=== PATIENT | female | born 1945 | race Caucasian/White ===

== ENCOUNTER 2017-11-08 12:47 | Emergency (ER) | payer MEDICARE, BC ==
[2017-11-08] MEDS ORDERED: ACETAMINOPHEN 325 MG TABLET PO ONE (13:00)
[2017-11-08] MEDS ORDERED: DIPH/PERTUSS(ACELL)/TETANUS VAC/PF 0.5 ML SYR (>=10YO) IM ONE (13:01)
--- NOTE | 2017-11-08 13:03 | ER Document Report ---
ED General - General Stated Complaint: FALL SHOULDER, HEAD PAIN Time Seen by Provider: 11/08/17 12:56 - HPI Notes: Right shoulder pain 8/10 sharp in nature without radiation nothing makes it better or worse. Started after a fall at home. Patient also has a small laceration right eyebrow approximately 1 inch. Patient denies headache. Patient was walking through the parking lot was trying to step over a speed bump that she misjudged the speed bump tripping or falling forward landing on her right side and striking her head on the ground. Patient denies any neck pain, numbness or tingling patient was able to rise the ground. She is now having difficulty moving her right shoulder. No obvious deformities. - Related Data Allergies/Adverse Reactions: No Known Allergies Allergy (Verified 11/08/17 13:14) Past Medical History - Social History Smoking Status: Unknown if Ever Smoked Family History: None - Past Medical History Cardiac Medical History: Reports: Hx Hypertension - new Dx, med x 1 month, HCTZ Denies: Hx Atrial Fibrillation, Hx Congestive Heart Failure, Hx Coronary Artery Disease, Hx Heart Attack, Hx Hypercholesterolemia, Hx Peripheral Vascular Disease, Hx Heart Murmur Renal/ Medical History: Reports: Hx Kidney Stones - ESWL approx 25 years ago RIGHT. Denies: Hx End Stage Renal Disease, Hx Peritoneal Dialysis GI Medical History: Reports: Hx Gastroesophageal Reflux Disease - no meds at present. Denies: Hx Crohn's Disease, Hx Hiatal Hernia, Hx Irritable Bowel, Hx Liver Failure, Hx Pancreatitis, Hx Ulcer Musculoskeltal Medical History: Reports Hx Arthritis, Denies Hx Fibromyalgia, Denies Hx Muscular Dystrophy Traumatic Medical History: Denies: Hx Fractures Past Surgical History: Reports: Hx Bowel Surgery - 2003 colon resection r/t multiple polyps, Hx Cholecystectomy, Hx Hysterectomy - RAFAEL BSO, Hx Tubal Ligation. Denies: Hx Appendectomy, Hx Section, Hx Colostomy, Hx Coronary Artery Bypass Graft, Hx Gastric Bypass Surgery, Hx Herniorrhaphy, Hx Mastectomy, Hx Pacemaker, Hx Tonsillectomy - Immunizations Hx Pneumococcal Vaccination: 09/14/12 Review of Systems - Review of Systems Notes: REVIEW OF SYSTEMS: CONSTITUTIONAL: -fevers, -chills EENT: -eye pain, -difficulty swallowing, -nasal congestion CARDIOVASCULAR: -chest pain, -syncope. RESPIRATORY: -cough, -SOB GASTROINTESTINAL: -abdominal pain, -nausea, -vomiting, -diarrhea GENITOURINARY: -dysuria, -hematuria MUSCULOSKELETAL: -back pain, -neck pain, positive right shoulder plain SKIN: -rash or skin lesions. Positive small laceration right eyebrow HEMATOLOGIC: -easy bruising or bleeding. LYMPHATIC: -swollen, enlarged glands. NEUROLOGICAL: -altered mental status or loss of consciousness, -headache, - neurologic symptoms PSYCHIATRIC: -anxiety, -depression. ALL OTHER SYSTEMS REVIEWED AND NEGATIVE. Physical Exam - Vital signs Vitals: Temp Pulse Resp BP Pulse Ox 98.9 F 103 H 16 101/62 97 11/08/17 12:54 11/08/17 12:54 11/08/17 12:54 11/08/17 12:54 11/08/17 12:54 - Notes Notes: PHYSICAL EXAMINATION: GENERAL: Well-appearing, well-nourished and in no acute distress. HEAD: Small laceration over right eyebrow, proximal 3 cm minimal gaping EYES: Pupils equal round and reactive to light, extraocular movements intact, sclera anicteric, conjunctiva are normal. ENT: nares patent, oropharynx clear without exudates. Moist mucous membranes. NECK: Normal range of motion, supple without lymphadenopathy LUNGS: Breath sounds clear to auscultation bilaterally and equal. No wheezes rales or rhonchi. HEART: Regular rate and rhythm without murmurs ABDOMEN: Soft, nontender, normoactive bowel sounds. No guarding, no rebound. No masses appreciated. EXTREMITIES: Unable to extend right arm secondary to pain, no obvious deformity felt NEUROLOGICAL: Cranial nerves grossly intact. Normal speech, normal gait. Normal sensory and motor exams. PSYCH: Normal mood, normal affect. SKIN: Warm, Dry, normal turgor, no rashes or lesions noted. Course - Re-evaluation Re-evalutation: 11/08/17 13:03 72-year-old female presents after mechanical fall outside by her doctor's office. Patient will have imaging study, urinalysis, EKG, CAT scan head. Cervical spine cleared by Nexus criteria 11/08/17 14:15 Patient's CAT scan of her head shows no intracranial process, imaging of her shoulder shows a proximal right humerus fracture. Patient not requiring any analgesia at this time will be placed in a sling for comfort. Patient's laceration close successfully by myself with Dermabond no complications. Patient will follow up with orthopedics 1 or 2 weeks. Given prescription for more pain medication. 11/08/17 14:18 Urine shows no signs of infection, EKG is no ischemic changes. - Vital Signs Vital signs: Temp Pulse Resp BP Pulse Ox 98.9 F 103 H 16 101/62 97 11/08/17 12:54 11/08/17 12:54 11/08/17 12:54 11/08/17 12:54 11/08/17 12:54 - EKG Interpretation by Me Additional EKG results interpreted by me: 11/08/17 14:18 Normal sinus rhythm 80 bpm, normal TN, normal QRS, no ST elevations or depressions, no pathologic T-wave inversions Procedures - Laceration/Wound Repair Right Face Wound length (cm): 3 Wound's Depth, Shape: Superficial, Linear Wound explored: Clean, No foreign body removed Wound Repaired With: Dermabond Post-procedure NV exam normal: Yes Complications: No Discharge - Discharge Clinical Impression: Laceration Humerus shaft fracture Qualifiers: Encounter type: initial encounter Fracture type: closed Fracture morphology: other fracture Laterality: right Qualified Code(s): S42.391A - Other fracture of shaft of right humerus, initial encounter for closed fracture Condition: Stable Disposition: HOME, SELF-CARE Instructions: Laceration Care ([facility]) Referrals: SHITAL CARLSON DO [Primary Care Provider] - Follow up as needed MALIHA CARVALHO MD [ACTIVE STAFF] - Follow up as needed
--- NOTE | 2017-11-08 14:03 | RADIOLOGY REPORT (SQ) ---
EXAM DESCRIPTION: SHOULDER RIGHT 2 OR MORE VIEWS COMPLETED DATE/TIME: 11/08/2017 1:52 pm REASON FOR STUDY: pain fall, injury, pain COMPARISON: None. NUMBER OF VIEWS: Three views. TECHNIQUE: Internal rotation, external rotation, and Y view images acquired of the right shoulder. LIMITATIONS: Portable technique FINDINGS: MINERALIZATION: Osteopenic BONES: Acute comminuted fracture right humeral head involving the greater tuberosity and surgical nec k, nondisplaced nonangulated. Fracture lines do not appear to extend to the articular surface of the humeral head. Right lobe scapula, clavicle and right upper ribs are intact. JOINTS: No dislocation. VISUALIZED LUNGS AND RIBS: No pneumothorax. No rib fracture. SOFT TISSUES: No radiopaque foreign body. OTHER: No other significant finding. IMPRESSION: Acute comminuted fracture right humeral head involving the greater tuberosity and surgic al neck. Nondisplaced, nonangulated. TECHNICAL DOCUMENTATION: JOB ID: [id number] [employer]- All Rights Reserved Reading location - IP/workstation name: [email or web address]
--- NOTE | 2017-11-08 14:06 | RADIOLOGY REPORT (SQ) ---
EXAM DESCRIPTION: CT HEAD WITHOUT COMPLETED DATE/TIME: 11/08/2017 1:55 pm REASON FOR STUDY: head trauma fall, injury, pain. Laceration to right eyebrow. COMPARISON: None. TECHNIQUE: Axial images acquired through the brain without intravenous contrast. Images reviewed wi th bone, brain and subdural windows. Additional sagittal and coronal reconstructions were generated. Images stored on PACS. All CT scanners at this facility use dose modulation, iterative reconstruction, and/or weight based d osing when appropriate to reduce radiation dose to as low as reasonably achievable (ALARA). [facility]: Dose Right [facility]: CareDose [facility]: Dose Right [facility]: Teradose 4D [facility]: [employer] RADIATION DOSE: CT Rad equipment meets quality standard of care and radiation dose reduction techniq ues were employed. CTDIvol: 53.2 mGy. DLP: 1044 mGy-cm. mGy. LIMITATIONS: None. FINDINGS: VENTRICLES: Normal size and contour. CEREBRUM: No masses. No hemorrhage. No midline shift. No evidence for acute infarction. Normal gra y/white matter differentiation. No areas of low density in the white matter. CEREBELLUM: No masses. No hemorrhage. No alteration of density. No evidence for acute infarction. EXTRAAXIAL SPACES: No fluid collections. No masses. ORBITS AND GLOBE: No intra- or extraconal masses. Normal contour of globe without masses. CALVARIUM: No fracture. PARANASAL SINUSES: No fluid or mucosal thickening. SOFT TISSUES: No mass or hematoma. OTHER: No other significant finding. IMPRESSION: NORMAL BRAIN CT WITHOUT CONTRAST. EVIDENCE OF ACUTE STROKE: NO. COMMENT: Quality ID # [id number]: Final reports with documentation of one or more dose reduction techniques (e.g., Automated exposure control, adjustment of the mA and/or kV according to patient size, use of iterative reconstruction technique) TECHNICAL DOCUMENTATION: JOB ID: [id number] [employer]- All Rights Reserved Reading location - IP/workstation name: [email or web address]
[2017-11-08 14:32] LABS: APPEARANCE,URINE TURBID; BILIRUBIN,URINE NEGATIVE (NEGATIVE); COLOR,URINE YELLOW; GLUCOSE, URINE NEGATIVE (NEGATIVE); KETONES,URINE NEGATIVE (NEGATIVE); LEUKOCYTE ESTERASE,URINE LARGE (NEGATIVE); NITRITE,URINE POSITIVE (NEGATIVE); PROTEIN,URINE 100 mg/dL (NEGATIVE); UROBILINOGEN,URINE NEGATIVE mg/dL (<2.0)
[2017-11-08 15:06] VITALS: BP 133/77
--- NOTE | 2017-11-08 21:44 | EKG REPORT ---
SEVERITY:- ABNORMAL ECG - SINUS RHYTHM NONSPECIFIC INTRAVENTRICULAR CONDUCTION DELAY PROBABLE LEFT VENTRICULAR HYPERTROPHY : Confirmed by: Sherrell Dubose MD 08-Nov-2017 21:44:07
== END 2017-11-08 14:55 | disposition home or self-care (01) ==
LOC: ER 12:47
PROC: 0HQ1XZZ Repair Face Skin, External Approach (ICD-10-PCS; principal; 2017-11-08)
DX: S42.391A Other fracture of shaft of right humerus, initial encounter for closed fracture (principal); S01.111A Laceration without foreign body of right eyelid and periocular area, initial encounter; W19.XXXA Unspecified fall, initial encounter; Y92.009 Unspecified place in unspecified non-institutional (private) residence as the place of occurrence of the external cause; W01.0XXA Fall on same level from slipping, tripping and stumbling without subsequent striking against object, initial encounter; Y92.481 Parking lot as the place of occurrence of the external cause; Z90.49 Acquired absence of other specified parts of digestive tract; Z90.710 Acquired absence of both cervix and uterus; Z23 Encounter for immunization
CPT/HCPCS: 93005; 99284; 81001; 73030; 70450; 90715; 93010; 12013; A9270

== ENCOUNTER 2017-11-18 12:01 | Inpatient (IN) | payer MEDICARE, BC ==
[2017-11-18] MEDS ORDERED: NORMAL SALINE 1000 ML 1,000 ML IV ONE ×2 (12:25→14:09)
[2017-11-18] MEDS ORDERED: ASPIRIN 81 MG TABLET, CHEWABLE PO ONE (12:25)
[2017-11-18 12:56] LABS: ABSOLUTE LYMPHOCYTES (AUTO) 1.5 10^3/uL (0.5-4.7); ABSOLUTE MONOCYTES (AUTO) 0.9 10^3/uL (0.1-1.4); ABSOLUTE NEUT (AUTO) 7.2 10^3/uL (1.7-8.2); BASOPHILS % (AUTO) 0.2 % (0-2); EOSINOPHILS % (AUTO) 0.1 % (0-6); HEMATOCRIT 28.2 % (36.0-47.0); HEMOGLOBIN 9.2 g/dL (12.0-15.5); LYMPHOCYTES % (AUTO) 15.1 % (13-45); MEAN CORPUSCULAR HEMOGLOBIN 27.6 pg (27.0-33.4); MEAN CORPUSCULAR HGB CONC 32.7 g/dL (32.0-36.0); MEAN CORPUSCULAR VOLUME 85 fl (80-97); MONOCYTES % (AUTO) 9.5 % (3-13); PLATELET COUNT 423 10^3/uL (150-450); RED BLOOD COUNT 3.33 10^6/uL (3.72-5.28); RED CELL DISTRIBUTION WIDTH 18.1 % (11.5-14.0); SEGMENTED NEUTROPHILS % (AUTO) 75.1 % (42-78); TOTAL CELLS COUNTED % (AUTO) 100 %; WHITE BLOOD COUNT 9.6 10^3/uL (4.0-10.5)
[2017-11-18 13:23] LABS: CREATINE KINASE MB 1.76 ng/mL (<4.55)
--- NOTE | 2017-11-18 13:33 | ER Document Report ---
ED General - General Chief Complaint: Dizziness Stated Complaint: FALL BODY PAIN Time Seen by Provider: 11/18/17 12:13 Mode of Arrival: Medic Information source: Patient Notes: 72-year-old female brought in by EMS from [facility] urgent care where she was seen just prior to arrival. Patient went to urgent care because she has been feeling dizzy, having vomiting and diarrhea for the past 2 weeks, complaining of a right-sided headache and bilateral knee pain right greater than left since she fell and broke her right arm and hit her head on November 08. Patient had negative CT scan of the head on the but her pain has continued and radiates into the right side of her neck. Denies taking blood thinners. Patient states that when she lived fell she landed on her bilateral knees. She is able to walk but states it hurts. Patient describes her dizziness as feeling like she is going to pass out, states that she feels like her heartburn has increased since the dizziness started. She has also been noticing blood in her urine for the past several months, states that her urine just always looks dark red. TRAVEL OUTSIDE OF THE [place] IN LAST 30 DAYS: No - Related Data Allergies/Adverse Reactions: No Known Allergies Allergy (Verified 11/08/17 13:14) Past Medical History - General Information source: Patient, Emergency Med Personnel, Outside Facility Records - Social History Smoking Status: Never Smoker Chew tobacco use (# tins/day): No Frequency of alcohol use: None Drug Abuse: None Lives with: Family Family History: None - Past Medical History Cardiac Medical History: Reports: Hx Hypertension - new Dx, med x 1 month, HCTZ Denies: Hx Atrial Fibrillation, Hx Congestive Heart Failure, Hx Coronary Artery Disease, Hx Heart Attack, Hx Hypercholesterolemia, Hx Peripheral Vascular Disease, Hx Heart Murmur EENT Medical History: Reports: Eyes - Cataracts with surgeries. Renal/ Medical History: Reports: Hx Kidney Stones - ESWL approx 25 years ago RIGHT. Denies: Hx End Stage Renal Disease, Hx Peritoneal Dialysis GI Medical History: Reports: Hx Gastroesophageal Reflux Disease - no meds at present. Denies: Hx Crohn's Disease, Hx Hiatal Hernia, Hx Irritable Bowel, Hx Liver Failure, Hx Pancreatitis, Hx Ulcer Musculoskeletal Medical History: Reports Hx Arthritis, Denies Hx Fibromyalgia, Denies Hx Muscular Dystrophy Traumatic Medical History: Denies: Hx Fractures Past Surgical History: Reports: Hx Bowel Surgery - 2004 colon resection r/t multiple polyps, Hx Cholecystectomy, Hx Hysterectomy - RAFAEL BSO, Hx Orthopedic Surgery - bilateral knee, Hx Tubal Ligation. Denies: Hx Appendectomy, Hx Section, Hx Colostomy, Hx Coronary Artery Bypass Graft, Hx Gastric Bypass Surgery, Hx Herniorrhaphy, Hx Mastectomy, Hx Pacemaker, Hx Tonsillectomy - Immunizations Hx Pneumococcal Vaccination: 09/14/12 Review of Systems - Review of Systems Constitutional: See HPI, Weakness EENT: Other - No change in her vision, states she has cataracts, had multiple surgeries performed, cannot see without her glasses. Cardiovascular: See HPI, Dizziness Respiratory: No symptoms reported Gastrointestinal: See HPI, Diarrhea, Nausea, Vomiting. denies: Abdominal pain Genitourinary: No symptoms reported Musculoskeletal: See HPI Neurological/Psychological: See HPI - Dizziness, near syncope., Headaches -: Yes All other systems reviewed and negative Physical Exam - Vital signs Interpretation: Tachycardic - Notes Notes: GENERAL: Alert, interacts well. No acute distress. HEAD: Normocephalic, atraumatic EYES: Left pupil is irregular and displaced superiorly, right pupil is round, able to track my fingers. States she cannot see without her glasses on. ENT: Oral mucosa moist, tongue midline. NECK: Full range of motion, supple, trachea midline. No midline bony tenderness palpation, tenderness across the right trapezius. LUNGS: Clear to auscultation bilaterally, no wheezes, rales or rhonchi, no respiratory distress. HEART: Regular rate and rhythm, no murmurs, gallops, rubs. ABDOMEN: Soft, nontender, nondistended, bowel sounds present in all 4 quadrants. EXTREMITIES: Right knee is ecchymotic, swollen, tender to palpation diffusely across the knee, negative anterior and posterior drawer test, no ligamentous laxity on either knee, patella is not ballotable on either knee, left knee is ecchymotic medially, not swollen, there is full range of motion. No cyanosis. Dorsalis pedis pulses 2+ bilaterally. Right arm immobilized in sling and not examined aside from verifying that she still has full range of motion of her fingers on her right hand. NEUROLOGICAL: Alert and oriented x3, normal speech. PSYCH: Normal mood, normal affect. SKIN: Warm, Dry, normal turgor Course - Re-evaluation Re-evalutation: 11/18/17 14:35 CBC shows anemia with hemoglobin 9.2, CMP shows acute renal failure, consistent with dehydration, CO2 is low at 9, anion gap elevated at 20, BUN quite elevated 99, creatinine quite elevated at 5.31, glucose normal at 111, cardiac enzymes negative, LFTs normal. EKG is nonischemic, patient is hydrated with a liter of normal saline, Izaguirre catheter has been ordered in case there is any urinary obstruction causing this renal failure, a second liter of normal saline has been ordered as well. Chest x-ray does not show any congestive heart failure or pulmonary edema, no signs of infiltrate or rib fractures, bilateral knee x- rays were ordered and they show prosthesis in good position bilaterally, given the dizziness in the pain after a fall CT scan of the head is again negative, seeing as she is complaining of neck pain along with her dizziness and did have a recent fall a CAT scan of the neck was ordered and also shows no acute fracture or dislocation. 11/18/17 14:41 Suspect renal failure is coming from dehydration due to the vomiting and diarrhea, patient was hypotensive on arrival, tachycardic, has a history of vomiting and diarrhea and has a low CO2. Discussed with Dr. Betina celis, agrees to admit the patient, hydrate them and see what their responses, Izaguirre catheter will be placed. Patient is aware that her renal failure may not respond to fluids and if so she may end up needing dialysis. - Laboratory Result Diagrams: 11/18/17 12:35 11/18/17 12:35 Laboratory results interpreted by me: 11/18/17 11/18/17 12:35 12:35 RBC 3.33 L Hgb 9.2 L Hct 28.2 L RDW 18.1 H Sodium 134.5 L Carbon Dioxide 9 L* Anion Gap 20 H BUN 99 H Creatinine 5.31 H Est GFR ( Amer) 10 L Est GFR (Non-Af Amer) 8 L Glucose 112 H AST 6 L Albumin 3.3 L - EKG Interpretation by Me Additional EKG results interpreted by me: 11/18/17 14:42 EKG shows sinus tachycardia, left axis deviation, interventricular conduction delay, T-wave inversions in 3 and aVF, no ST segment elevations or depressions poor R-wave progression per my interpretation. Discharge - Discharge Clinical Impression: Acute renal failure Condition: Fair Disposition: ADMITTED INPATIENT Admitting Provider: Hospitalist - [facility] Unit Admitted: IMCU Referrals: ELVIA BASURTO MD [Primary Care Provider] - Follow up as needed
[2017-11-18 13:34] LABS: TROPONIN I < 0.012 ng/mL
--- NOTE | 2017-11-18 13:37 | RADIOLOGY REPORT (SQ) ---
EXAM DESCRIPTION: CHEST SINGLE VIEW COMPLETED DATE/TIME: 11/18/2017 1:24 pm REASON FOR STUDY: dizziness COMPARISON: 09/04/2012 EXAM PARAMETERS: NUMBER OF VIEWS: One view. TECHNIQUE: Single frontal radiographic view of the chest acquired. RADIATION DOSE: NA LIMITATIONS: None. FINDINGS: LUNGS AND PLEURA: No opacities, masses or pneumothorax. No pleural effusion. MEDIASTINUM AND HILAR STRUCTURES: No masses. Contour normal. HEART AND VASCULAR STRUCTURES: Heart normal in size. Normal vasculature. BONES: No acute findings. HARDWARE: None in the chest. OTHER: No other significant finding. IMPRESSION: NO ACUTE RADIOGRAPHIC FINDING IN THE CHEST. TECHNICAL DOCUMENTATION: JOB ID: [id number] [employer]- All Rights Reserved Reading location - IP/workstation name: [email or web address]
--- NOTE | 2017-11-18 13:40 | RADIOLOGY REPORT (SQ) ---
EXAM DESCRIPTION: CT HEAD WITHOUT COMPLETED DATE/TIME: 11/18/2017 1:26 pm REASON FOR STUDY: Dizziness, fall, knee pain COMPARISON: 11/08/2017 TECHNIQUE: Axial images acquired through the brain without intravenous contrast. Images reviewed wi th bone, brain and subdural windows. Additional sagittal and coronal reconstructions were generated. Images stored on PACS. All CT scanners at this facility use dose modulation, iterative reconstruction, and/or weight based d osing when appropriate to reduce radiation dose to as low as reasonably achievable (ALARA). [facility]: Dose Right [facility]: CareDose [facility]: Dose Right [facility]: Teradose 4D [facility]: [employer] RADIATION DOSE: CT Rad equipment meets quality standard of care and radiation dose reduction techniq ues were employed. CTDIvol: 53.2 mGy. DLP: 1070 mGy-cm. mGy. LIMITATIONS: None. FINDINGS: VENTRICLES: Normal size and contour. CEREBRUM: No masses. No hemorrhage. No midline shift. No evidence for acute infarction. Normal gra y/white matter differentiation. No areas of low density in the white matter. CEREBELLUM: No masses. No hemorrhage. No alteration of density. No evidence for acute infarction. EXTRAAXIAL SPACES: No fluid collections. No masses. ORBITS AND GLOBE: No intra- or extraconal masses. Normal contour of globe without masses. CALVARIUM: No fracture. PARANASAL SINUSES: No fluid or mucosal thickening. SOFT TISSUES: No mass or hematoma. OTHER: No other significant finding. IMPRESSION: NORMAL BRAIN CT WITHOUT CONTRAST. EVIDENCE OF ACUTE STROKE: NO. COMMENT: Quality ID # [id number]: Final reports with documentation of one or more dose reduction techniques (e.g., Automated exposure control, adjustment of the mA and/or kV according to patient size, use of iterative reconstruction technique) TECHNICAL DOCUMENTATION: JOB ID: [id number] [employer]- All Rights Reserved Reading location - IP/workstation name: [email or web address]
--- NOTE | 2017-11-18 13:41 | RADIOLOGY REPORT (SQ) ---
EXAM DESCRIPTION: KNEE LEFT 3 VIEWS COMPLETED DATE/TIME: 11/18/2017 1:24 pm REASON FOR STUDY: dizziness, fall, knee pain COMPARISON: 09/10/2012. NUMBER OF VIEWS: Four views. TECHNIQUE: AP, lateral, and both oblique radiographic images acquired of the left knee. LIMITATIONS: None. FINDINGS: MINERALIZATION: Normal. BONES: Status post left total knee replacement. The femoral and tibial components are seated properl y. No abnormality of the patella button. No hardware failure. Bony densities adjacent to left medi al femoral condyle and lateral left knee joint consistent with postsurgical change. JOINT: No effusion. SOFT TISSUES: No soft tissue swelling. No radio-opaque foreign body. OTHER: No other significant finding. IMPRESSION: Status post total left knee prosthesis. Otherwise, no significant abnormality seen. TECHNICAL DOCUMENTATION: JOB ID: [id number] 2010 [employer]- All Rights Reserved Reading location - IP/workstation name: [email or web address]
--- NOTE | 2017-11-18 13:45 | RADIOLOGY REPORT (SQ) ---
EXAM DESCRIPTION: KNEE RIGHT 3 VIEWS COMPLETED DATE/TIME: 11/18/2017 1:24 pm REASON FOR STUDY: dizziness, fall, knee pain COMPARISON: 01/14/2013. NUMBER OF VIEWS: Four views. TECHNIQUE: AP, lateral, and both oblique radiographic images acquired of the right knee. LIMITATIONS: None. FINDINGS: MINERALIZATION: Normal. BONES: Status post right total knee prosthesis. JOINT: Multiple bony densities noted overlying posterior knee joint could represent loose bodies or osteochondromata. SOFT TISSUES: No soft tissue swelling. No radio-opaque foreign body. OTHER: No other significant finding. IMPRESSION: Status post total right knee prosthesis. Otherwise, no significant abnormality seen. TECHNICAL DOCUMENTATION: JOB ID: [id number] [id number] 2010 [employer]- All Rights Reserved Reading location - IP/workstation name: [email or web address]
[2017-11-18 13:54] LABS: ALANINE AMINOTRANSFERASE 18 U/L (9-52); ALBUMIN 3.3 g/dL (3.5-5.0); ALKALINE PHOSPHATASE 85 U/L (38-126); ASPARTATE AMINO TRANSFERASE 6 U/L (14-36); BILIRUBIN,DIRECT 0.3 mg/dL (0.0-0.4); BILIRUBIN,TOTAL 0.3 mg/dL (0.2-1.3); BLOOD UREA NITROGEN 99 mg/dL (7-20); CALCIUM 8.9 mg/dL (8.4-10.2); CHLORIDE 106 mmol/L (98-107); CREATINE KINASE 34 U/L (30-135); GLUCOSE 112 mg/dL (75-110); POTASSIUM 4.9 mmol/L (3.6-5.0); SODIUM 134.5 mmol/L (137-145)
[2017-11-18 13:56] LABS: ANION GAP 20 (5-19)
[2017-11-18 13:59] LABS: CARBON DIOXIDE 9 mmol/L (22-30)
--- NOTE | 2017-11-18 14:14 | RADIOLOGY REPORT (SQ) ---
EXAM DESCRIPTION: CT CERVICAL SPINE WITHOUT COMPLETED DATE/TIME: 11/18/2017 1:43 pm REASON FOR STUDY: fall, neck pain COMPARISON: None. TECHNIQUE: Axial images acquired through the cervical spine without intravenous contrast. Images re viewed with lung, soft tissue and bone windows. Reconstructed coronal and sagittal MPR images review ed. Images stored on PACS. All CT scanners at this facility use dose modulation, iterative reconstruction, and/or weight based d osing when appropriate to reduce radiation dose to as low as reasonably achievable (ALARA). [facility]: Dose Right [facility]: CareDose [facility]: Dose Right [facility]: Teradose 4D [facility]: [employer] RADIATION DOSE: CT Rad equipment meets quality standard of care and radiation dose reduction techniq ues were employed. CTDIvol: 15.4 mGy. DLP: 300 mGy-cm. mGy. LIMITATIONS: None. FINDINGS: ALIGNMENT: Anatomic. MINERALIZATION: Normal. VERTEBRAL BODIES: No fractures or dislocation. DISCS: C1-C2: No significant spinal stenosis or exit foraminal stenosis. C2-C3: Facet arthropathy and hypertrophy. C3-C4: Facet arthropathy and hypertrophy prominent on the right with foraminal stenosis on the right. C4-C5: Cervical spondylosis and degenerative disc disease. Facet arthropathy and hypertrophy with m inimal foraminal narrowing on the on the right. C5-C6: Cervical spondylosis and degenerative disc disease. Marked facet arthropathy and hypertrophy with bilateral foraminal stenosis. Ligamentous calcification posterior to C5-6 C6-C7: Cervical spondylosis and degenerative disc disease. No significant spinal stenosis or exit f oraminal stenosis. C7-T1: No significant spinal stenosis or exit foraminal stenosis. LUNG APICES AND SOFT TISSUES: No significant or acute findings. OTHER: No other significant finding. IMPRESSION: No acute fracture identified. Multilevel cervical spondylosis and facet arthropathy. F oraminal stenosis stenosis on the right at C4-5 and bilaterally at C5-6 TECHNICAL DOCUMENTATION: JOB ID: [id number] Quality ID # [id number]: Final reports with documentation of one or more dose reduction techniques (e.g., Au tomated exposure control, adjustment of the mA and/or kV according to patient size, use of iterative reconstruction technique) 2010 [employer]- All Rights Reserved Reading location - IP/workstation name: [email or web address]
[2017-11-18] MEDS ORDERED: ACETAMINOPHEN 325 MG TABLET PO PRN (15:03)
[2017-11-18] MEDS ORDERED: ONDANSETRON 4 MG TAB.RAPDIS PO PRN (15:03)
--- NOTE | 2017-11-18 15:27 | PDOC H&P ---
History of Present Illness Admission Date/PCP: 11/18/17 14:48 ELVIA BASURTO MD History of Present Illness: FARIBA BUENO is a 72 year old female patient with past medical history of hypertension, GERD and history of kidney stone status post ESWL about 25 years ago, presents with chief complaint of nausea, vomiting and dizziness of 2 weeks duration. Initially patient visited [facility] where she was found to be hypotensive and directed to come to [facility]. Patient claims he vomited his ingested material and the diarrhea is watery and nonbloody. About 12 days ago patient had accidental fall and she fractured her right humerus and for which she was seen by Dr. Mauro who recommended nonoperative intervention. Her blood work is remarkable for acute kidney injury with creatinine of 5.3, BUN of 99 and GFR of 10. Her baseline creatinine is unknown. Patient denies any chills, fever, cough, chest pain, palpitation, diaphoresis, or urinary complaints. Patient endorses nausea vomiting and abdominal pain. She has dizziness but denies blurry of vision or seizure activity. Past Medical History Cardiac Medical History: Reports: Hypertension - new Dx, med x 1 month, HCTZ Denies: Atrial Fibrillation, Congestive Heart Failure, Coronary Artery Disease, Myocardial Infarction, Hyperlipidema, Peripheral Vascular Disease, Heart Murmur EENT Medical History: Reports: Eyes - Cataracts with surgeries. Renal/ Medical History: Denies: End Stage Renal Disease GI Medical History: Reports: Gastroesophageal Reflux Disease - no meds at present Denies: Crohn's Disease, Hiatal Hernia Musculoskeltal Medical History: Reports: Arthritis Denies: Fibromyalgia Past Surgical History Past Surgical History: Reports: Cholecystectomy, Hysterectomy - RAFAEL BSO, Orthopedic Surgery - bilateral knee, Tubal Ligation Denies: Amputation, Appendectomy, Section, Colostomy, Coronary Artery Bypass Graft, Gastric Bypass Surgery, Herniorrhaphy, Mastectomy, Pacemaker, Tonsillectomy Social History Lives with: Family Smoking Status: Never Smoker Frequency of Alcohol Use: None Hx Recreational Drug Use: No Drugs: None Hx Prescription Drug Abuse: No - Advance Directive Resuscitation Status: Full Code Family History Family History: None, CAD, DM, Hypertension Parental Family History Reviewed: Yes Children Family History Reviewed: Yes Sibling(s) Family History Reviewed.: Yes Medication/Allergy Home Medications: Lisinopril/Hydrochlorothiazide [Lisinopril-Hctz 10-12.5 mg Tab] 1 each PO DAILY 11/18/17 Oxycodone HCl [Oxy-Ir 5 mg Tablet] 5 mg PO Q6HP PRN MDD FILLED 11/08 FOR 2DS Allergies/Adverse Reactions: No Known Allergies Allergy (Verified 11/08/17 13:14) Review of Systems Constitutional: ABSENT: chills, fever(s), headache(s), weight gain, weight loss Eyes: PRESENT: as per HPI Cardiovascular: ABSENT: chest pain, dyspnea on exertion, edema, orthropnea, palpitations Respiratory: ABSENT: cough, hemoptysis Gastrointestinal: PRESENT: diarrhea, nausea, vomiting Neurological: ABSENT: abnormal gait, abnormal speech, confusion, dizziness, focal weakness, syncope Psychiatric: ABSENT: anxiety, depression, homidical ideation, suicidal ideation Physical Exam General appearance: PRESENT: no acute distress, well-developed, well-nourished Head exam: PRESENT: atraumatic, normocephalic Eye exam: PRESENT: conjunctiva pink, EOMI, PERRLA. ABSENT: scleral icterus Ear exam: PRESENT: normal external ear exam Mouth exam: PRESENT: moist, tongue midline Neck exam: ABSENT: carotid bruit, JVD, lymphadenopathy, thyromegaly Respiratory exam: PRESENT: clear to auscultation cynthia. ABSENT: rales, rhonchi, wheezes Cardiovascular exam: PRESENT: RRR. ABSENT: diastolic murmur, rubs, systolic murmur Pulses: PRESENT: normal dorsalis pedis pul Vascular exam: PRESENT: normal capillary refill GI/Abdominal exam: PRESENT: normal bowel sounds, soft. ABSENT: distended, guarding, mass, organolmegaly, rebound, tenderness Rectal exam: PRESENT: deferred Extremities exam: PRESENT: full ROM, other - Tenderness and swelling of the episode of her right upper and Juan over her right knee joint.. ABSENT: calf tenderness, clubbing, pedal edema Neurological exam: PRESENT: alert, awake, oriented to person, oriented to place , oriented to time, oriented to situation. ABSENT: motor sensory deficit Psychiatric exam: PRESENT: appropriate affect, normal mood. ABSENT: homicidal ideation, suicidal ideation Skin exam: PRESENT: dry, intact, warm. ABSENT: cyanosis, rash Results Impressions: Chest X-Ray 11/18/17 12:25 IMPRESSION: NO ACUTE RADIOGRAPHIC FINDING IN THE CHEST. Knee X-Ray 11/18/17 12:25 IMPRESSION: Status post total right knee prosthesis. Otherwise, no significant abnormality seen. Head CT 11/18/17 12:26 IMPRESSION: NORMAL BRAIN CT WITHOUT CONTRAST. EVIDENCE OF ACUTE STROKE: NO. Cervical Spine CT 11/18/17 13:24 IMPRESSION: No acute fracture identified. Multilevel cervical spondylosis and facet arthropathy. Foraminal stenosis stenosis on the right at C4-5 and bilaterally at C5-6 Assessment & Plan - Diagnosis (1) Acute kidney injury Is this a current diagnosis for this admission?: Yes Plan: Most probably due to volume depletion. Patient is being aggressively hydrated. Since patient has history of kidney stone I think it is appropriate to rule out obstructive uropathy with renal ultrasound. (2) Hypertension Qualifiers: Hypertension type: essential hypertension Qualified Code(s): I10 - Essential (primary) hypertension Is this a current diagnosis for this admission?: Yes Plan: Currently patient is hypotensive and I will hold her antihypertensive medications. (3) GERD (gastroesophageal reflux disease) Is this a current diagnosis for this admission?: Yes Plan: Patient has been started on lansoprazole.
[2017-11-18 16:37] LABS: ARTERIAL BLOOD BASE EXCESS -16.1 mmol/L; ARTERIAL BLOOD HCO3 8.1 mmol/L (20-26); ARTERIAL BLOOD O2 SATURATION 97.8 % (94-98); ARTERIAL BLOOD PH 7.31 (7.35-7.45); ARTERIAL BLOOD PO2 110.9 mmHg (80-100); ARTERIAL BLOOD TOTAL CO2 8.6 mmol/L (21-25)
[2017-11-18 16:40] LABS: ARTERIAL BLOOD FIO2 RA
[2017-11-18 16:41] LABS: ARTERIAL BLOOD PCO2 16.5 mmHg (35-45)
--- NOTE | 2017-11-18 17:09 | RADIOLOGY REPORT (SQ) ---
EXAM DESCRIPTION: U/S RETROPERITON (RENAL/AORTA) COMPLETED DATE/TIME: 11/18/2017 4:54 pm REASON FOR STUDY: Acute kidney injury COMPARISON: None. TECHNIQUE: Dynamic and static grayscale images acquired of the kidneys and bladder and recorded on P ACS. Additional selected color Doppler and spectral images recorded. LIMITATIONS: None. FINDINGS: RIGHT KIDNEY: Normal size. Normal echogenicity. No solid or suspicious masses. No h ydronephrosis. Multiple large shadowing stones, the largest measuring 2.7 cm. LEFT KIDNEY: Normal size. Normal echogenicity. No solid or suspicious masses. No hydronephrosi s. 1.8 cm shadowing stone in the upper pole. BLADDER: No masses. OTHER FINDINGS: No other significant finding. IMPRESSION: LARGE CALCULI IN BOTH KIDNEYS. NO SIGNIFICANT HYDRONEPHROSIS. TECHNICAL DOCUMENTATION: JOB ID: [id number] [employer]- All Rights Reserved Reading location - IP/workstation name: [email or web address]
[2017-11-18] MEDS: NORMAL SALINE 1000 ML 1,000 ML IV PRN (18:16)
[2017-11-18 18:55] LABS: APPEARANCE,URINE TURBID; BILIRUBIN,URINE NEGATIVE (NEGATIVE); COLOR,URINE YELLOW; GLUCOSE, URINE NEGATIVE (NEGATIVE); KETONES,URINE NEGATIVE (NEGATIVE); LEUKOCYTE ESTERASE,URINE LARGE (NEGATIVE); NITRITE,URINE NEGATIVE (NEGATIVE); PROTEIN,URINE 100 mg/dL (NEGATIVE); URINE SPECIFIC GRAVITY 1.008; UROBILINOGEN,URINE NEGATIVE mg/dL (<2.0)
[2017-11-18] MEDS: HEPARIN SOD (PORCINE) 5,000 UNIT/ML 1 ML SYRINGE SUBCUT SCH (21:42)
--- NOTE | 2017-11-18 21:59 | EKG REPORT ---
SEVERITY:- ABNORMAL ECG - SINUS TACHYCARDIA NONSPECIFIC INTRAVENTRICULAR CONDUCTION DELAY : Confirmed by: Gordon Herron 18-Nov-2017 21:58:37
[2017-11-18] MEDS ORDERED: CEFTRIAXONE 1 GM/D5W RTU 1 GM/50 ML RTUPB IV ONE (23:00)
[2017-11-19] MEDS ORDERED: CEFTRIAXONE INJ 1000 MG VIAL ONE
[2017-11-19] MEDS: HEPARIN SOD (PORCINE) 5,000 UNIT/ML 1 ML SYRINGE SUBCUT SCH ×3 (07:29→21:26)
[2017-11-19 09:51] LABS: ALANINE AMINOTRANSFERASE 20 U/L (9-52); ALBUMIN 3.1 g/dL (3.5-5.0); ALKALINE PHOSPHATASE 79 U/L (38-126); ASPARTATE AMINO TRANSFERASE 9 U/L (14-36); BILIRUBIN,DIRECT 0.4 mg/dL (0.0-0.4); BILIRUBIN,TOTAL 0.4 mg/dL (0.2-1.3); BLOOD UREA NITROGEN 89 mg/dL (7-20); CALCIUM 8.8 mg/dL (8.4-10.2); CHLORIDE 120 mmol/L (98-107); GLUCOSE 100 mg/dL (75-110); POTASSIUM 4.7 mmol/L (3.6-5.0); TOTAL PROTEIN 6.8 g/dL (6.3-8.2)
[2017-11-19 10:00] LABS: ANION GAP 16 (5-19)
[2017-11-19] MEDS ORDERED: CEFTRIAXONE 1 GM/D5W RTU 1 GM/50 ML RTUPB IV SCH (10:00)
[2017-11-19 10:05] LABS: CARBON DIOXIDE 9 mmol/L (22-30)
[2017-11-19] MEDS: CEFTRIAXONE SODIUM 1,000 MG in DEXTROSE 5%-WATER 50 ML IV SCH (11:24)
[2017-11-19] MEDS: NORMAL SALINE 1000 ML 1,000 ML IV PRN ×2 (12:21→20:11)
--- NOTE | 2017-11-19 17:20 | PDOC PROGRESS REPORT ---
Subjective Progress Note for:: 11/19/17 Subjective:: This is a 72 years old female patient admitted yesterday for severe acute kidney injury with creatinine of 5.31, BUN of 99 and GFR of 8. Probably patient might have underlying chronic kidney disease since she told me she has upcoming appointment with impregnator electrolytic capacitors. Today I seen patient resting in bed surrounded by family members she is chatting with him. And her kidney function is also relatively improving and creatinine trending down from 5.31-3.71, BUN 99 -89 and her GFR from 8-12. Her renal ultrasound reported as large bilateral renal calculi. No evidence of hydronephrosis. Reason For Visit: SEVERE KIDNEY INJURY Physical Exam Vital Signs: Temp Pulse Resp BP Pulse Ox 97.9 F 104 H 17 132/60 H 100 11/19/17 16:01 11/19/17 16:01 11/19/17 16:01 11/19/17 16:01 11/19/17 16:01 Intake & Output 11/18/17 11/19/17 11/20/17 06:59 06:59 06:59 Intake Total 2190 237 Output Total 1100 Balance 1090 237 Weight 73.1 kg Results Laboratory Results: 11/19/17 09:11 11/18/17 11/19/17 18:07 09:11 Sodium 145.0 Potassium 4.7 Chloride 120 H Carbon Dioxide 9 L* Anion Gap 16 BUN 89 H Creatinine 3.71 H Est GFR ( Amer) 14 L Est GFR (Non-Af Amer) 12 L Glucose 100 Calcium 8.8 Total Bilirubin 0.4 AST 9 L ALT 20 Alkaline Phosphatase 79 Total Protein 6.8 Albumin 3.1 L Urine Color YELLOW Urine Appearance TURBID Urine pH 7.0 Ur Specific [place] 1.008 Urine Protein 100 H Urine Glucose (UA) NEGATIVE Urine Ketones NEGATIVE Urine Blood LARGE H Urine Nitrite NEGATIVE Ur Leukocyte Esterase LARGE H Urine WBC (Auto) >182 Urine RBC (Auto) 79 11/18/17 21:00 Troponin I < 0.012 Impressions: Renal Ultrasound 11/18/17 00:00 IMPRESSION: LARGE CALCULI IN BOTH KIDNEYS. NO SIGNIFICANT HYDRONEPHROSIS. Chest X-Ray 11/18/17 12:25 IMPRESSION: NO ACUTE RADIOGRAPHIC FINDING IN THE CHEST. Knee X-Ray 11/18/17 12:25 IMPRESSION: Status post total right knee prosthesis. Otherwise, no significant abnormality seen. Head CT 11/18/17 12:26 IMPRESSION: NORMAL BRAIN CT WITHOUT CONTRAST. EVIDENCE OF ACUTE STROKE: NO. Cervical Spine CT 11/18/17 13:24 IMPRESSION: No acute fracture identified. Multilevel cervical spondylosis and facet arthropathy. Foraminal stenosis stenosis on the right at C4-5 and bilaterally at C5-6 Assessment & Plan - Diagnosis (1) Acute kidney injury Is this a current diagnosis for this admission?: Yes Plan: Improving. Continue hydration (2) Hypertension Qualifiers: Hypertension type: essential hypertension Qualified Code(s): I10 - Essential (primary) hypertension Is this a current diagnosis for this admission?: Yes Plan: Currently patient is hypotensive and I will hold her antihypertensive medications. (3) GERD (gastroesophageal reflux disease) Is this a current diagnosis for this admission?: Yes Plan: Patient has been started on lansoprazole. - Time Time Spent with patient: 25-34 minutes
[2017-11-20] MEDS: HEPARIN SOD (PORCINE) 5,000 UNIT/ML 1 ML SYRINGE SUBCUT SCH ×3 (07:19→22:05)
[2017-11-20 09:52] LABS: HEMATOCRIT 29.9 % (36.0-47.0); HEMOGLOBIN 9.3 g/dL (12.0-15.5); MEAN CORPUSCULAR HEMOGLOBIN 26.3 pg (27.0-33.4); MEAN CORPUSCULAR HGB CONC 30.9 g/dL (32.0-36.0); MEAN CORPUSCULAR VOLUME 85 fl (80-97); PLATELET COUNT 416 10^3/uL (150-450); RED BLOOD COUNT 3.52 10^6/uL (3.72-5.28); RED CELL DISTRIBUTION WIDTH 18.1 % (11.5-14.0); WHITE BLOOD COUNT 7.3 10^3/uL (4.0-10.5)
[2017-11-20 10:10] LABS: CALCIUM 8.9 mg/dL (8.4-10.2); CHLORIDE 124 mmol/L (98-107); GLUCOSE 86 mg/dL (75-110); POTASSIUM 4.9 mmol/L (3.6-5.0); SODIUM 146.9 mmol/L (137-145)
[2017-11-20 10:17] LABS: ANION GAP 14 (5-19)
[2017-11-20 10:26] LABS: BLOOD UREA NITROGEN 62 mg/dL (7-20); CARBON DIOXIDE 9 mmol/L (22-30)
[2017-11-20] MEDS: CEFTRIAXONE SODIUM 1,000 MG in DEXTROSE 5%-WATER 50 ML IV SCH (11:24)
[2017-11-20] MEDS: DEXTROSE 5%-WATER 1000 ML 1,000 ML with SODIUM BICARBONATE 100 MEQ IV PRN ×2 (14:01)
--- NOTE | 2017-11-20 15:18 | RADIOLOGY REPORT (SQ) ---
EXAM DESCRIPTION: CT ABD/PELVIS NO ORAL OR IV COMPLETED DATE/TIME: 11/20/2017 2:25 pm REASON FOR STUDY: Kidney Stones COMPARISON: None. TECHNIQUE: CT scan of the abdomen and pelvis performed without intravenous or oral contrast. Images reviewed with lung, soft tissue, and bone windows. Reconstructed coronal and sagittal MPR images revi ewed. All images stored on PACS. All CT scanners at this facility use dose modulation, iterative reconstruction, and/or weight based d osing when appropriate to reduce radiation dose to as low as reasonably achievable (ALARA). [facility]: Dose Right [facility]: CareDose [facility]: Dose Right [facility]: Teradose 4D [facility]: [employer] RADIATION DOSE: CT Rad equipment meets quality standard of care and radiation dose reduction techniq ues were employed. CTDIvol: 11.8 mGy. DLP: 616 mGy-cm.mGy. LIMITATIONS: Positioning. FINDINGS: LOWER CHEST: Hiatal hernia. NON-CONTRASTED LIVER, SPLEEN, ADRENALS: Evaluation limited by lack of IV contrast. No identified sign ificant masses. PANCREAS: No masses. No peripancreatic inflammatory changes. GALLBLADDER: Surgically absent. RIGHT KIDNEY AND URETER: No suspicious masses. Assessment limited by lack of IV contrast. Calculi e ssentially fill the renal pelvis and UPJ. These measure approximately 1,100 HU. Chronic appearing hydronephrosis with cortical thinning. LEFT KIDNEY AND URETER: No suspicious masses. Assessment limited by lack of IV contrast. Similar st one burden as on the right. Chronic appearing hydronephrosis with cortical thinning. AORTA AND RETROPERITONEUM: No aneurysm. No retroperitoneal masses or adenopathy. BOWEL AND PERITONEAL CAVITY: Right hemicolectomy. No obvious masses or inflammatory changes. No free fluid. APPENDIX: Surgically absent. PELVIS, BLADDER, AND ABDOMINAL WALL:No abnormal masses. No free fluid. Bladder normal. BONES: No significant findings. OTHER: No other significant finding. IMPRESSION: Massive bilateral renal and UPJ calculi with hydronephrosis and cortical thinning. COMMENT: Quality ID # [id number]: Final reports with documentation of one or more dose reduction techniques (e.g., Automated exposure control, adjustment of the mA and/or kV according to patient size, use of iterative reconstruction technique) TECHNICAL DOCUMENTATION: JOB ID: [id number]- All Rights Reserved Reading location - IP/workstation name: [email or web address]
[2017-11-21] MEDS: NORMAL SALINE 1000 ML 1,000 ML IV PRN (04:54)
[2017-11-21] MEDS: HEPARIN SOD (PORCINE) 5,000 UNIT/ML 1 ML SYRINGE SUBCUT SCH ×2 (05:07→14:20)
[2017-11-21] MEDS: CEFTRIAXONE SODIUM 1,000 MG in DEXTROSE 5%-WATER 50 ML IV SCH (09:50)
[2017-11-21 10:38] LABS: ANION GAP 11 (5-19); BLOOD UREA NITROGEN 52 mg/dL (7-20); CALCIUM 8.8 mg/dL (8.4-10.2); CARBON DIOXIDE 13 mmol/L (22-30); CHLORIDE 119 mmol/L (98-107); GLUCOSE 111 mg/dL (75-110); POTASSIUM 4.6 mmol/L (3.6-5.0); SODIUM 143.3 mmol/L (137-145)
--- NOTE | 2017-11-21 11:07 | PDOC CONSULTATION ---
History of Present Illness Admission Date/PCP: 11/18/17 14:48 ELVIA BASURTO MD Patient complains of: kidney stones History of Present Illness: FARIBA BUENO is a 72 year old female Past Medical History Cardiac Medical History: Reports: Hypertension - new Dx, med x 1 month, HCTZ Denies: Atrial Fibrillation, Congestive Heart Failure, Coronary Artery Disease, Myocardial Infarction, Hyperlipidema, Peripheral Vascular Disease, Heart Murmur EENT Medical History: Reports: Eyes - Cataracts with surgeries. Renal/ Medical History: Denies: End Stage Renal Disease GI Medical History: Reports: Gastroesophageal Reflux Disease - no meds at present Denies: Crohn's Disease, Hiatal Hernia Musculoskeltal Medical History: Reports: Arthritis Denies: Fibromyalgia Past Surgical History Past Surgical History: Reports: Cholecystectomy, Hysterectomy - RAFAEL BSO, Orthopedic Surgery - bilateral knee, Tubal Ligation Denies: Amputation, Appendectomy, Section, Colostomy, Coronary Artery Bypass Graft, Gastric Bypass Surgery, Herniorrhaphy, Mastectomy, Pacemaker, Tonsillectomy Social History Lives with: Family Smoking Status: Never Smoker Frequency of Alcohol Use: None Hx Recreational Drug Use: No Drugs: None Hx Prescription Drug Abuse: No - Advance Directive Resuscitation Status: Full Code Family History Family History: None, CAD, DM, Hypertension Parental Family History Reviewed: No Children Family History Reviewed: No Sibling(s) Family History Reviewed.: No Medication/Allergy Home Medications: Lisinopril/Hydrochlorothiazide [Lisinopril-Hctz 10-12.5 mg Tab] 1 each PO DAILY 11/18/17 Oxycodone HCl [Oxy-Ir 5 mg Tablet] 5 mg PO Q6HP PRN MDD FILLED 11/08 FOR 2DS Allergies/Adverse Reactions: No Known Allergies Allergy (Verified 11/08/17 13:14) Physical Exam Vital Signs: Temp Pulse Resp BP Pulse Ox 97.8 F 65 20 121/56 L 100 11/21/17 04:27 11/21/17 07:00 11/21/17 04:27 11/21/17 04:27 11/21/17 04:27 Intake & Output 11/20/17 11/21/17 11/22/17 06:59 06:59 06:59 Intake Total 4417 3044 Output Total 2700 900 Balance 1717 2144 Weight 74.8 kg 76.7 kg Results Laboratory Results: 11/20/17 09:08 11/21/17 09:44 11/21/17 09:44 Sodium 143.3 Potassium 4.6 Chloride 119 H Carbon Dioxide 13 L Anion Gap 11 BUN 52 H Creatinine 2.11 H Est GFR ( Amer) 28 L Est GFR (Non-Af Amer) 23 L Glucose 111 H Calcium 8.8 11/18/17 21:00 Troponin I < 0.012 EKG Comments: CT showed bilateral staghorn calculi with thinning of renal parenchyma. Impressions: Renal Ultrasound 11/18/17 00:00 IMPRESSION: LARGE CALCULI IN BOTH KIDNEYS. NO SIGNIFICANT HYDRONEPHROSIS. Chest X-Ray 11/18/17 12:25 IMPRESSION: NO ACUTE RADIOGRAPHIC FINDING IN THE CHEST. Knee X-Ray 11/18/17 12:25 IMPRESSION: Status post total right knee prosthesis. Otherwise, no significant abnormality seen. Head CT 11/18/17 12:26 IMPRESSION: NORMAL BRAIN CT WITHOUT CONTRAST. EVIDENCE OF ACUTE STROKE: NO. Cervical Spine CT 11/18/17 13:24 IMPRESSION: No acute fracture identified. Multilevel cervical spondylosis and facet arthropathy. Foraminal stenosis stenosis on the right at C4-5 and bilaterally at C5-6 Abdomen/Pelvis CT 11/20/17 00:00 IMPRESSION: Massive bilateral renal and UPJ calculi with hydronephrosis and cortical thinning. Assessment & Plan - Diagnosis (1) Kidney stones Is this a current diagnosis for this admission?: No Plan: patient needs percutaneous nephrolithotripsy done in specialized hospital - Plan Summary Plan Summary: see note on assessment
[2017-11-21] MEDS: DEXTROSE 5%-WATER 1000 ML 1,000 ML with SODIUM BICARBONATE 100 MEQ IV PRN ×2 (12:43)
--- NOTE | 2017-11-21 14:31 | PDOC DISCHARGE SUMMARY ---
General - Admit/Disc Date/PCP Admission Date/Primary Care Provider: 11/18/17 14:48 ELVIA BASURTO MD Discharge Date: 11/21/17 - Discharge Diagnosis (1) Acute kidney injury Is this a current diagnosis for this admission?: Yes (2) Hypertension Is this a current diagnosis for this admission?: Yes (3) GERD (gastroesophageal reflux disease) Is this a current diagnosis for this admission?: Yes (4) Nephrolithiasis Is this a current diagnosis for this admission?: Yes - Additional Information Resuscitation Status: Full Code Discharge Diet: As Tolerated Discharge Activity: Activity As Tolerated Prescriptions: Metoprolol Noble/Hydrochlorothiaz [Metoprolol ER-Hctz 25-12.5 mg] 1 each PO DAILY # 30 tab.er.24h Home Medications: Oxycodone HCl [Oxy-Ir 5 mg Tablet] 5 mg PO Q6HP PRN MDD FILLED 11/08 FOR 2DS Metoprolol Noble/Hydrochlorothiaz [Metoprolol ER-Hctz 25-12.5 mg] 1 each PO DAILY # 30 tab.er.24h 11/21/17 History of Present Illness History of Present Illness: FARIBA BUENO is a 72 year old female patient with past medical history of hypertension, GERD and history of kidney stone status post ESWL about 25 years ago, presents with chief complaint of nausea, vomiting and dizziness of 2 weeks duration. Initially patient visited [place] urgent clinic where she was found to be hypotensive and directed to come to [place] [facility]. Patient claims he vomited his ingested material and the diarrhea is watery and nonbloody. About 12 days ago patient had accidental fall and she fractured her right humerus and for which she was seen by Dr. Mauro who recommended nonoperative intervention. Her blood work is remarkable for acute kidney injury with creatinine of 5.3, BUN of 99 and GFR of 10. Her baseline creatinine is unknown. Patient denies any chills, fever, cough, chest pain, palpitation, diaphoresis, or urinary complaints. Patient endorses nausea vomiting and abdominal pain. She has dizziness but denies blurry of vision or seizure activity. Hospital Course Hospital Course: This is a 72 years old female patient admitted yesterday for severe acute kidney injury with creatinine of 5.31, BUN of 99 and GFR of 8. Probably patient might have underlying chronic kidney disease since she told me she has upcoming appointment with barrel rifler operator. Today I seen patient sitting up at the bedside. She is awake alert oriented. She is not in pain or any form of distress.. And her kidney function has improved remarkably and creatinine trending down from 5.31-3.71, BUN 99 -89 and her GFR from 8-12. Her renal ultrasound reported as large bilateral renal calculi. No evidence of hydronephrosis. Patient seen by Dr. jefferson who recommended [facility]. Her vital signs and labs are within normal limits. Patient is going to be discharged in stable condition. She needs follow-up with her primary barrel rifler operator. Because of relatively poor renal function I will discontinue her lisinopril and I will put her on metoprolol and hydrochlorothiazide combined. Physical Exam Vital Signs: Temp Pulse Resp BP Pulse Ox 97.8 F 65 20 121/56 L 100 11/21/17 04:27 11/21/17 07:00 11/21/17 04:27 11/21/17 04:27 11/21/17 04:27 Intake & Output 11/20/17 11/21/17 11/22/17 06:59 06:59 06:59 Intake Total 4417 3044 237 Output Total 2700 900 600 Balance 1717 2144 -363 Weight 74.8 kg 76.7 kg General appearance: PRESENT: no acute distress, well-developed, well-nourished Head exam: PRESENT: atraumatic, normocephalic Eye exam: PRESENT: conjunctiva pink, EOMI, PERRLA. ABSENT: scleral icterus Ear exam: PRESENT: normal external ear exam Mouth exam: PRESENT: moist, tongue midline Neck exam: ABSENT: carotid bruit, JVD, lymphadenopathy, thyromegaly Respiratory exam: PRESENT: clear to auscultation cynthia. ABSENT: rales, rhonchi, wheezes Cardiovascular exam: PRESENT: RRR. ABSENT: diastolic murmur, rubs, systolic murmur Pulses: PRESENT: normal dorsalis pedis pul Vascular exam: PRESENT: normal capillary refill GI/Abdominal exam: PRESENT: normal bowel sounds, soft. ABSENT: distended, guarding, mass, organolmegaly, rebound, tenderness Rectal exam: PRESENT: deferred Extremities exam: PRESENT: full ROM. ABSENT: calf tenderness, clubbing, pedal edema Neurological exam: PRESENT: alert, awake, oriented to person, oriented to place , oriented to time, oriented to situation, CN II-XII grossly intact. ABSENT: motor sensory deficit Psychiatric exam: PRESENT: appropriate affect, normal mood. ABSENT: homicidal ideation, suicidal ideation Skin exam: PRESENT: dry, intact, warm. ABSENT: cyanosis, rash Results Laboratory Results: 11/20/17 09:08 11/21/17 09:44 11/21/17 09:44 Sodium 143.3 Potassium 4.6 Chloride 119 H Carbon Dioxide 13 L Anion Gap 11 BUN 52 H Creatinine 2.11 H Est GFR ( Amer) 28 L Est GFR (Non-Af Amer) 23 L Glucose 111 H Calcium 8.8 11/18/17 21:00 Troponin I < 0.012 Impressions: Renal Ultrasound 11/18/17 00:00 IMPRESSION: LARGE CALCULI IN BOTH KIDNEYS. NO SIGNIFICANT HYDRONEPHROSIS. Chest X-Ray 11/18/17 12:25 IMPRESSION: NO ACUTE RADIOGRAPHIC FINDING IN THE CHEST. Knee X-Ray 11/18/17 12:25 IMPRESSION: Status post total right knee prosthesis. Otherwise, no significant abnormality seen. Head CT 11/18/17 12:26 IMPRESSION: NORMAL BRAIN CT WITHOUT CONTRAST. EVIDENCE OF ACUTE STROKE: NO. Cervical Spine CT 11/18/17 13:24 IMPRESSION: No acute fracture identified. Multilevel cervical spondylosis and facet arthropathy. Foraminal stenosis stenosis on the right at C4-5 and bilaterally at C5-6 Abdomen/Pelvis CT 11/20/17 00:00 IMPRESSION: Massive bilateral renal and UPJ calculi with hydronephrosis and cortical thinning. Qualifiers - * PATIENT BEING DISCHARGED WITH ANY OF THE FOLLOWING DIAGNOSIS: No
[2017-11-21 15:46] VITALS: BP 112/65
--- NOTE | 2017-11-21 17:17 | PDOC CONSULTATION ---
Consultation Consult Date: 11/21/17 Attending physician:: JORDAN PÉREZ Consult reason:: I was asked to see the patient because of acute on chronic kidney failure. History of Present Illness Admission Date/PCP: 11/18/17 14:48 ELVIA KHOURY MD History of Present Illness: FARIBA BUENO is a 72 year old female with history of hypertension, acid reflux, and kidney stone status post ESWL 25 years ago who was admitted on November 18 for acute kidney injury. Patient did give a history of on and off diarrhea for 2 weeks and nausea and vomiting for couple of days. She said the diarrhea, nausea and vomiting resolved last week around . She initially presented at [facility] urgent care and was found to be hypotensive so she was directed to go to [facility] emergency room. On admission she had a BUN of 99 and creatinine of 5.3 with EGFR of 10. Patient was referred to me as an outpatient by Dr. Khoury and actually has an appointment to see me for the first time on . Patient admits that she has not seen any physician for a long time before she started seeing Dr. Khoury sometime in August of this year. Her previous records showed that she had a BUN of 34 and creatinine of 2.3 with estimated GFR of 21.1 on September 19, 2017. Since admission the patient was started to be hydrated and her kidney function actually improved. Current kidney function indicates a BUN of 52 and creatinine of 2.11 which is very close to her baseline kidney function. Patient also has low bicarbonate on admission at 19 and currently improved to 13 but still low. Workup done in the hospital included abdominal and pelvic CT scan which showed massive bilateral renal UPJ calculi for which urology was consulted. Dr. Dailey saw the patient and recommends follow-up with him for percutaneous nephrolithotripsy as an outpatient. Currently the patient is making good amount of urine. She seems to be stable and does not really have much new complaints. Incidentally patient did have a more recent right humerus fracture from a fall and is being treated by Dr. Mauro Past Medical History Cardiac Medical History: Reports: Hypertension-primary EENT Medical History: Reports: Cataracts Renal/ Medical History: Reports: Chronic Kidney Disease Stage IV GI Medical History: Reports: Gastroesophageal Reflux Disease - no meds at present Musculoskeltal Medical History: Reports: Arthritis Past Surgical History Past Surgical History: Reports: Cholecystectomy, Hysterectomy - RAFAEL BSO, Orthopedic Surgery - bilateral knee, Tubal Ligation Social History Lives with: Alone Smoking Status: Never Smoker Frequency of Alcohol Use: None Hx Recreational Drug Use: No Drugs: None Hx Prescription Drug Abuse: No - Advance Directive Resuscitation Status: Full Code Family History Family History: Chronic Kidney Disease - Her uncle was on hemodialysis, DM - Mother, Malignancy - Breast cancer on her Hiram's Parental Family History Reviewed: Yes Children Family History Reviewed: Yes Sibling(s) Family History Reviewed.: Yes Medication/Allergy Home Medications: Oxycodone HCl [Oxy-Ir 5 mg Tablet] 5 mg PO Q6HP PRN MDD FILLED 11/08 FOR 2DS Metoprolol Noble/Hydrochlorothiaz [Metoprolol ER-Hctz 25-12.5 mg] 1 each PO DAILY # 30 tab.er.24h 11/21/17 Sodium Bicarbonate [Sodium Bicarbonate 650 mg Tablet] 650 mg PO BID 30 Days #60 tablet 11/21/17 Allergies/Adverse Reactions: No Known Allergies Allergy (Verified 11/08/17 13:14) Review of Systems All systems: reviewed and no additional remarkable complaints except as stated Review of Systems: Constitutional: ABSENT: chills, fatigue, fever(s), headache(s), weight gain, weight loss Eyes: ABSENT: visual disturbances Ears: ABSENT: hearing changes Cardiovascular: ABSENT: chest pain, dyspnea on exertion, edema, orthropnea, palpitations Respiratory: ABSENT: cough, dyspnea, hemoptysis Gastrointestinal: ABSENT: abdominal pain, constipation, diarrhea, hematemesis, hematochezia, nausea, vomiting Genitourinary: ABSENT: dysuria, hematuria Musculoskeletal: ABSENT: joint swelling Integumentary: ABSENT: rash, wounds Neurological: ABSENT: abnormal gait, abnormal speech, confusion, dizziness, focal weakness, numbness, syncope Psychiatric: ABSENT: anxiety, depression Endocrine: ABSENT: cold intolerance, heat intolerance, polydipsia, polyuria Hematologic/Lymphatic: ABSENT: easy bleeding, easy bruising, lymphadenopathy Physical Exam Vital Signs: Temp Pulse Resp BP Pulse Ox 97.8 F 91 20 112/65 100 11/21/17 15:45 11/21/17 15:45 11/21/17 15:45 11/21/17 15:45 11/21/17 15:45 Intake & Output 11/20/17 11/21/17 11/22/17 06:59 06:59 06:59 Intake Total 4417 3044 237 Output Total 2700 900 600 Balance 9167 0724 -673 Weight 74.8 kg 76.7 kg Exam: General appearance: no acute distress, cooperative, well-developed, well- nourished Head exam: PRESENT: atraumatic, normocephalic Eye exam: PRESENT: Conjunctiva pale, EOMI, PERRLA. ABSENT: conjunctival injection, scleral icterus Mouth exam: PRESENT: moist, neck supple, tongue midline Neck exam: PRESENT: full ROM. ABSENT: carotid bruit, JVD, lymphadenopathy, thyromegaly Respiratory exam: PRESENT: clear to auscultation bilaterally. ABSENT: rales, rhonchi, stridor, wheezes Cardiovascular exam: PRESENT: RRR, +S1, +S2. ABSENT: systolic murmur Pulses: PRESENT: normal radial pulses, normal dorsalis pedis pulses GI/Abdominal exam: PRESENT: normal bowel sounds, soft. ABSENT: guarding, mass, tenderness Rectal exam: deferred Extremities exam: PRESENT: full ROM. ABSENT: calf tenderness, pedal edema Musculoskeletal: PRESENT: Right arm is on sling. ABSENT: deformity Neurological exam: PRESENT: alert, Awake, Oriented to person, Oriented to place , Oriented to time, reflexes normal, CN II-XII grossly intact. ABSENT: motor sensory deficit Psychiatric exam: PRESENT: appropriate affect, normal mood. ABSENT: homicidal ideation, suicidal ideation Skin exam: PRESENT: intact, dry, warm. ABSENT: rash Results Laboratory Results: 11/20/17 09:08 11/21/17 09:44 11/21/17 09:44 Sodium 143.3 Potassium 4.6 Chloride 119 H Carbon Dioxide 13 L Anion Gap 11 BUN 52 H Creatinine 2.11 H Est GFR ( Amer) 28 L Est GFR (Non-Af Amer) 23 L Glucose 111 H Calcium 8.8 11/18/17 21:00 Troponin I < 0.012 Impressions: Renal Ultrasound 11/18/17 00:00 IMPRESSION: LARGE CALCULI IN BOTH KIDNEYS. NO SIGNIFICANT HYDRONEPHROSIS. Chest X-Ray 11/18/17 12:25 IMPRESSION: NO ACUTE RADIOGRAPHIC FINDING IN THE CHEST. Knee X-Ray 11/18/17 12:25 IMPRESSION: Status post total right knee prosthesis. Otherwise, no significant abnormality seen. Head CT 11/18/17 12:26 IMPRESSION: NORMAL BRAIN CT WITHOUT CONTRAST. EVIDENCE OF ACUTE STROKE: NO. Cervical Spine CT 11/18/17 13:24 IMPRESSION: No acute fracture identified. Multilevel cervical spondylosis and facet arthropathy. Foraminal stenosis stenosis on the right at C4-5 and bilaterally at C5-6 Abdomen/Pelvis CT 11/20/17 00:00 IMPRESSION: Massive bilateral renal and UPJ calculi with hydronephrosis and cortical thinning. Assessment & Plan - Diagnosis (1) Acute kidney injury Is this a current diagnosis for this admission?: Yes Plan: Acute worsening of the kidney function could be secondary to prerenal azotemia due to GI symptoms which is currently improved down to almost at baseline. The findings of bilateral kidney stones appears to be chronic rather than acute. (2) Chronic kidney disease (CKD), stage IV (severe) Is this a current diagnosis for this admission?: Yes Plan: Risk factors for chronic kidney disease include history of nephrolithiasis as well as hypertension. (3) Nephrolithiasis Is this a current diagnosis for this admission?: Yes Plan: Bilateral massive UPJ stones which could be there for a while rather than being acute. Patient to follow-up with urology for further management as an outpatient. (4) Metabolic acidosis Is this a current diagnosis for this admission?: Yes Plan: Patient seems to have chronic metabolic acidosis from previous labs. Acute worsening of the acidosis could be due to her diarrhea on presentation. I will start the patient's sodium bicarbonate 650 mg twice a day on discharge. (5) Anemia in chronic illness Is this a current diagnosis for this admission?: Yes Plan: Patient most likely has anemia of chronic kidney disease as contributory factor for this. Needs to be followed up for further treatment as an outpatient. (6) Hypertension Qualifiers: Hypertension type: essential hypertension Qualified Code(s): I10 - Essential (primary) hypertension Is this a current diagnosis for this admission?: Yes Plan: Currently controlled. Agree with holding lisinopril for a while and continuation of metoprolol/HCTZ per hospitalist service. (7) Humerus fracture Is this a current diagnosis for this admission?: Yes Plan: Follow with Dr. Mauro. - Notes Notes: Thank you very much for this consultation. Assessment and plan discussed with the patient and her son at bedside. I will see the patient for follow-up visit on Monday at 8:50 AM in my office. Prior to that the patient should have repeat CBC and BMP on . Discussed plan with her treating nurse. Also discussed case with hospitalist. - Time Time Spent: Greater than 70 Minutes
== END 2017-11-21 18:16 | disposition home or self-care (01) | DRG 683 ==
LOC: ER 12:01 → EH 14:48 → 3S 17:28
PROVIDERS: ADMIT Internal Medicine; ATTEND Internal Medicine
DX: N17.9 Acute kidney failure, unspecified (principal); E87.2 Acidosis; N13.2 Hydronephrosis with renal and ureteral calculous obstruction; K21.9 Gastro-esophageal reflux disease without esophagitis; I12.9 Hypertensive chronic kidney disease with stage 1 through stage 4 chronic kidney disease, or unspecified chronic kidney disease; N18.4 Chronic kidney disease, stage 4 (severe); Z96.651 Presence of right artificial knee joint; D63.1 Anemia in chronic kidney disease; M48.02 Spinal stenosis, cervical region; M19.90 Unspecified osteoarthritis, unspecified site; S42.301D Unspecified fracture of shaft of humerus, right arm, subsequent encounter for fracture with routine healing; W19.XXXD Unspecified fall, subsequent encounter; E86.0 Dehydration; R00.0 Tachycardia, unspecified; Z91.81 History of falling; Z60.2 Problems related to living alone; Z98.42 Cataract extraction status, left eye; Z98.41 Cataract extraction status, right eye; Z90.49 Acquired absence of other specified parts of digestive tract; Z90.710 Acquired absence of both cervix and uterus; Z84.1 Family history of disorders of kidney and ureter; Z83.3 Family history of diabetes mellitus; Z80.3 Family history of malignant neoplasm of breast
CPT/HCPCS: 36415; 70450; 71045; 72125; 74176; 76770; 80048; 80053; 81001; 82550; 82553; 82803; 84484; 85025; 85027; 93005; 93010; 96360; 99285; J0696; J1644; J3490; J7030; J7060

== ENCOUNTER → 2017-11-23 | Outpatient (CLI) | payer MEDICARE, BC ==
[2017-11-23 11:16] LABS: HEMATOCRIT 28.1 % (36.0-47.0); MEAN CORPUSCULAR HEMOGLOBIN 27.5 pg (27.0-33.4); MEAN CORPUSCULAR HGB CONC 32.1 g/dL (32.0-36.0); MEAN CORPUSCULAR VOLUME 86 fl (80-97); PLATELET COUNT 425 10^3/uL (150-450); RED BLOOD COUNT 3.29 10^6/uL (3.72-5.28); RED CELL DISTRIBUTION WIDTH 18.2 % (11.5-14.0); WHITE BLOOD COUNT 7.8 10^3/uL (4.0-10.5)
[2017-11-23 11:30] LABS: BLOOD UREA NITROGEN 45 mg/dL (7-20); CALCIUM 9.2 mg/dL (8.4-10.2); CHLORIDE 118 mmol/L (98-107); GLUCOSE 77 mg/dL (75-110); SODIUM 142.5 mmol/L (137-145)
[2017-11-23 11:36] LABS: ANION GAP 14 (5-19)
[2017-11-23 11:41] LABS: CARBON DIOXIDE 11 mmol/L (22-30)
== END ==
LOC: OD 10:28
PROVIDERS: ATTEND Internal Medicine Nephrology
DX: N17.9 Acute kidney failure, unspecified (principal); N18.9 Chronic kidney disease, unspecified; D64.9 Anemia, unspecified
CPT/HCPCS: 36415; 80048; 85027

== ENCOUNTER 2017-12-22 11:25 | Emergency (ER) | payer MEDICARE, BC ==
--- NOTE | 2017-12-22 11:50 | ER Document Report ---
ED GI/ - General Stated Complaint: NEPHROSTOMY COMPLICATION Time Seen by Provider: 12/22/17 11:34 Mode of Arrival: Stretcher Information source: Patient TRAVEL OUTSIDE OF THE [place] IN LAST 30 DAYS: No - HPI Patient complains to provider of: Other - Nephrostomy tube malfunction Onset: Yesterday Timing/Duration: Gradual, Persistent Quality of pain: No pain Associated symptoms: None Exacerbated by: Denies Relieved by: Denies Similar symptoms previously: No Recently seen / treated by doctor: Yes Notes: 12/22/17 11:43 Patient is a 72-year-old female presenting to the emergency room today complaining of leakage from her right nephrostomy tube, nephrostomy tubes were placed 5 days ago at [facility] secondary to large kidney stones, the left nephrostomy tube appears to be working and functioning well, the right one has been leaking a large amount of urine around the tube since sometime yesterday, patient denies any pain, no fevers, no nausea, vomiting or diarrhea - Related Data Allergies/Adverse Reactions: No Known Allergies Allergy (Verified 11/08/17 13:14) Past Medical History - General Information source: Patient - Social History Smoking Status: Unknown if Ever Smoked Family History: None, CAD, DM, Hypertension - Past Medical History Cardiac Medical History: Reports: Hx Hypertension - new Dx, med x 1 month, HCTZ Denies: Hx Atrial Fibrillation, Hx Congestive Heart Failure, Hx Coronary Artery Disease, Hx Heart Attack, Hx Hypercholesterolemia, Hx Peripheral Vascular Disease, Hx Heart Murmur Renal/ Medical History: Reports: Hx Kidney Stones - ESWL approx 25 years ago RIGHT. Denies: Hx End Stage Renal Disease, Hx Peritoneal Dialysis GI Medical History: Reports: Hx Gastroesophageal Reflux Disease - no meds at present. Denies: Hx Crohn's Disease, Hx Hiatal Hernia, Hx Irritable Bowel, Hx Liver Failure, Hx Pancreatitis, Hx Ulcer Musculoskeletal Medical History: Reports Hx Arthritis, Denies Hx Fibromyalgia, Denies Hx Muscular Dystrophy Traumatic Medical History: Denies: Hx Fractures Past Surgical History: Reports: Hx Bowel Surgery - 2004 colon resection r/t multiple polyps, Hx Cholecystectomy, Hx Hysterectomy - RAFAEL BSO, Hx Orthopedic Surgery - bilateral knee, Hx Tubal Ligation. Denies: Hx Appendectomy, Hx Section, Hx Colostomy, Hx Coronary Artery Bypass Graft, Hx Gastric Bypass Surgery, Hx Herniorrhaphy, Hx Mastectomy, Hx Pacemaker, Hx Tonsillectomy - Immunizations Hx Pneumococcal Vaccination: 09/14/12 Review of Systems - Review of Systems Constitutional: No symptoms reported EENT: No symptoms reported Cardiovascular: No symptoms reported Respiratory: No symptoms reported Gastrointestinal: No symptoms reported Genitourinary: See HPI Female Genitourinary: No symptoms reported Musculoskeletal: No symptoms reported Skin: No symptoms reported Hematologic/Lymphatic: No symptoms reported Neurological/Psychological: No symptoms reported -: Yes All other systems reviewed and negative Physical Exam - Vital signs Interpretation: Normal - General General appearance: Appears well, Alert - HEENT Head: Normocephalic, Atraumatic Eyes: Normal Pupils: PERRL - Respiratory Respiratory status: No respiratory distress Chest status: Nontender Breath sounds: Normal Chest palpation: Normal - Cardiovascular Rhythm: Regular Heart sounds: Normal auscultation Murmur: No - Abdominal Inspection: Normal Distension: No distension Bowel sounds: Normal Tenderness: Nontender Organomegaly: No organomegaly - Back Back: Other - Bilateral nephrostomy tubes in place, large amount of urine saturating patient's shirt surrounding the nephrostomy tube on the right, no erythema, no purulent drainage, no tenderness, suture is in place holding the nephrostomy tube - Extremities General upper extremity: Normal inspection, Nontender, Normal color, Normal ROM , Normal temperature General lower extremity: Normal inspection, Nontender, Normal color, Normal ROM , Normal temperature, Normal weight bearing. No: Carina's sign - Neurological Neuro grossly intact: Yes Cognition: Normal Orientation: AAOx4 Josh Coma Scale Eye Opening: Spontaneous [place] Coma Scale Verbal: Oriented Josh Coma Scale Motor: Obeys Commands [place] Coma Scale Total: 15 Speech: Normal Motor strength normal: LUE, RUE, LLE, RLE Sensory: Normal - Psychological Associated symptoms: Normal affect, Normal mood - Skin Skin Temperature: Warm Skin Moisture: Dry Skin Color: Normal Course - Re-evaluation Re-evalutation: 12/22/17 12:29 Nursing staff was able to get the right nephrostomy tube working again, there was a white cap that was twisted in the wrong direction, once that was opened it was easy to flush the nephrostomy tube and now there is good urine output, without leakage around the site, therefore patient will be discharged with instructions for follow-up and advised to return if any additional concerns, patient acknowledges understanding and agreement with this plan Discharge - Discharge Clinical Impression: Nephrostomy complication Condition: Stable Disposition: HOME, SELF-CARE Additional Instructions: Follow up with your primary care provider and urologist in one to 2 days. Return to the emergency room immediately if symptoms worsen or any additional concerns. Referrals: GABRIELLE STEIN MD [Primary Care Provider] - Follow up as needed
[2017-12-22 13:46] VITALS: BP 138/58
== END 2017-12-22 13:35 | disposition home or self-care (01) ==
LOC: ER 11:25
DX: N99.528 Other complication of incontinent external stoma of urinary tract (principal); Y83.8 Other surgical procedures as the cause of abnormal reaction of the patient, or of later complication, without mention of misadventure at the time of the procedure; I10 Essential (primary) hypertension
CPT/HCPCS: 99283

== ENCOUNTER → 2018-02-02 | Outpatient (CLI) | payer MEDICARE, BC ==
[2018-02-02 11:05] LABS: HEMATOCRIT 23.3 % (36.0-47.0); MEAN CORPUSCULAR HEMOGLOBIN 29.4 pg (27.0-33.4); MEAN CORPUSCULAR HGB CONC 32.7 g/dL (32.0-36.0); MEAN CORPUSCULAR VOLUME 90 fl (80-97); PLATELET COUNT 268 10^3/uL (150-450); RED BLOOD COUNT 2.58 10^6/uL (3.72-5.28); RED CELL DISTRIBUTION WIDTH 16.3 % (11.5-14.0); WHITE BLOOD COUNT 6.4 10^3/uL (4.0-10.5)
[2018-02-02 11:55] LABS: HEMOGLOBIN 7.6 g/dL (12.0-15.5)
== END ==
LOC: OD 10:21
PROVIDERS: ATTEND Urology
DX: N18.3 Chronic kidney disease, stage 3 (moderate) (principal); D63.1 Anemia in chronic kidney disease
CPT/HCPCS: 36415; 85027

== ENCOUNTER → 2019-03-19 | Outpatient (CLI) | payer MEDICARE, BC ==
[2019-03-19 10:51] LABS: ABSOLUTE BASOPHILS # (AUTO) 0.1 10^3/uL (0.0-0.2); ABSOLUTE EOSINOPHILS # (AUTO) 0.2 10^3/uL (0.0-0.6); ABSOLUTE LYMPHOCYTES (AUTO) 2.4 10^3/uL (0.5-4.7); ABSOLUTE MONOCYTES (AUTO) 0.7 10^3/uL (0.1-1.4); ABSOLUTE NEUT (AUTO) 4.5 10^3/uL (1.7-8.2); BASOPHILS % (AUTO) 0.7 % (0-2); EOSINOPHILS % (AUTO) 2.4 % (0-6); HEMATOCRIT 34.9 % (36.0-47.0); HEMOGLOBIN 11.6 g/dL (12.0-15.5); LYMPHOCYTES % (AUTO) 30.7 % (13-45); MEAN CORPUSCULAR HEMOGLOBIN 29.9 pg (27.0-33.4); MEAN CORPUSCULAR HGB CONC 33.3 g/dL (32.0-36.0); MEAN CORPUSCULAR VOLUME 90 fl (80-97); MONOCYTES % (AUTO) 8.5 % (3-13); PLATELET COUNT 315 10^3/uL (150-450); RED BLOOD COUNT 3.89 10^6/uL (3.72-5.28); RED CELL DISTRIBUTION WIDTH 16.6 % (11.5-14.0); SEGMENTED NEUTROPHILS % (AUTO) 57.7 % (42-78); TOTAL CELLS COUNTED % (AUTO) 100 %; WHITE BLOOD COUNT 7.8 10^3/uL (4.0-10.5)
[2019-03-19 10:55] LABS: APPEARANCE,URINE SLIGHTLY-CLOUDY; BILIRUBIN,URINE NEGATIVE (NEGATIVE); COLOR,URINE YELLOW; GLUCOSE, URINE NEGATIVE (NEGATIVE); KETONES,URINE NEGATIVE (NEGATIVE); LEUKOCYTE ESTERASE,URINE LARGE (NEGATIVE); NITRITE,URINE NEGATIVE (NEGATIVE); PROTEIN,URINE 30 mg/dL (NEGATIVE); UROBILINOGEN,URINE NEGATIVE mg/dL (<2.0)
[2019-03-19 11:13] LABS: ALBUMIN 4.3 g/dL (3.5-5.0); ANION GAP 13 (5-19); BLOOD UREA NITROGEN 26 mg/dL (7-20); CALCIUM 9.6 mg/dL (8.4-10.2); CARBON DIOXIDE 18 mmol/L (22-30); CHLORIDE 109 mmol/L (98-107); GLUCOSE 106 mg/dL (75-110); PHOSPHORUS 4.4 mg/dL (2.5-4.5); POTASSIUM 4.9 mmol/L (3.6-5.0)
== END ==
LOC: OD 09:58
PROVIDERS: ATTEND Internal Medicine Nephrology
DX: I12.9 Hypertensive chronic kidney disease with stage 1 through stage 4 chronic kidney disease, or unspecified chronic kidney disease (principal); N18.4 Chronic kidney disease, stage 4 (severe); D64.9 Anemia, unspecified; N39.0 Urinary tract infection, site not specified
CPT/HCPCS: 36415; 80069; 81001; 85025; 87086